=== PATIENT | male | born 1970 | race Caucasian/White ===

== ENCOUNTER → 2016-12-21 | Outpatient (CLI) | payer MEDICARE ==
[~2016-12-21] MED LIST: BUSPIRONE HCL7.5 MG PO; FORT1000TA PO; GLUCOTROL XL10 MG PO; LOVAZA1 GM PO; PRINIVIL5 MG PO; TRADJENTA5 MG PO; ZOCOR 10MG10 MG PO
== END ==
LOC: COL.RAD 08:07
DX: N18.1 Chronic kidney disease, stage 1 (principal); R80.8 Other proteinuria